=== PATIENT | male | born 1990 | race Caucasian/White ===

== ENCOUNTER 2016-10-26 17:50 | Emergency (ER) | payer MEDICAID ==
[~2016-10-26] VITALS: Ht 175.3 cm; Wt 68.0 kg
[2016-10-26 17:53] VITALS: BP 131/89; PULSE 99; RESP 16; TEMP 98.4; O2SAT 98
[2016-10-26] MEDS ORDERED: SODIUM CHLOR 0.9% 1000 ML INJ 1,000 ML IV SCH (19:36)
[2016-10-26] MEDS ORDERED: SODIUM CHLORIDE 0.9% FLUSH 5 ML FLUSH IVF PRN (19:45)
[2016-10-26] MEDS ORDERED: ONDANSETRON HCL 4 MG/2 ML VIAL IVP ONE (19:45)
[2016-10-26] MEDS ORDERED: MORPHINE SULFATE 4 MG/ML INJ IV PUSH ONE (19:45)
[2016-10-26 19:46] VITALS: BP 138/83; PULSE 81; RESP 16; RESP 18; O2SAT 96
[2016-10-26] MEDS ORDERED: FAMOTIDINE 20 MG/2 ML VIAL IV PUSH ONE (20:15)
[2016-10-26] MEDS ORDERED: HYDROmorphone HCL PF 1 MG/ML VIAL IV PUSH ONE ×2 (20:15→22:30)
[2016-10-26 20:37] LABS: AUTOMATED NEUTROPHIL # 12.3 TH/MM3 (1.8-7.7); BASOPHIL % 0.3 % (0.0-2.0); EOSINOPHIL % 0.1 % (0.0-4.0); HEMATOCRIT 41.4 % (39.0-51.0); HEMO FLAGS DIFF FINAL; LYMPH % 7.6 % (9.0-44.0); MEAN CELL VOLUME 87.6 FL (80.0-100.0); MEAN CORPUSCULAR HEMOGLOBIN 29.6 PG (27.0-34.0); MEAN CORPUSCULAR HGB CONC 33.8 % (32.0-36.0); MONO % 2.5 % (0.0-8.0); NEUT % 89.5 % (16.0-70.0); PLATELET COUNT 229 TH/MM3 (150-450); RED BLOOD COUNT 4.73 MIL/MM3 (4.50-5.90); RED CELL DISTRIBUTION WIDTH 12.9 % (11.6-17.2); WHITE BLOOD COUNT 13.7 TH/MM3 (4.0-11.0)
[2016-10-26 20:50] LABS: BICARBONATE 24.7 MEQ/L (21.0-32.0); POTASSIUM 4.3 MEQ/L (3.5-5.1)
[2016-10-26 20:54] LABS: TOTAL BILIRUBIN ADULT 0.1 MG/DL (0.2-1.0)
[2016-10-26] MEDS ORDERED: GABA100C4 PO (20:58)
[2016-10-26] MEDS ORDERED: AQUACHW PO (20:58)
[2016-10-26] MEDS ORDERED: PANT20 PO (20:58)
[2016-10-26] MEDS ORDERED: CULT10CA4 PO (20:58)
[2016-10-26] MEDS ORDERED: VENTAER INH (20:58)
[2016-10-26] MEDS ORDERED: DIAZ2TAB PO (20:58)
[2016-10-26] MEDS ORDERED: VITA100064 PO (20:58)
[2016-10-26] MEDS ORDERED: ZENP1000 PO (20:58)
[2016-10-26] MEDS ORDERED: DRON2.5 PO (20:58)
[2016-10-26 21:15] VITALS: BP 120/63; PULSE 98; RESP 16; O2SAT 96
[2016-10-26] MEDS ORDERED: ONDANSETRON HCL 4 MG/2 ML VIAL IV PUSH ONE (22:30)
--- NOTE | 2016-10-26 22:46 | PD ---
HPI Chief Complaint: GI Complaint Time Seen by Provider: 19:32 Travel History International Travel<30 days: No Contact w/Intl Traveler<30days: No Traveled to known affect area: No History of Present Illness HPI Patient is a 26 year old male with history of cystic Fibrosis and pancreatitis, who comes in complaining of abdominal pain, nausea or vomiting. He says he has had issues times in the past. He has had a nerve block performed in the past that helped for about 2 months, but then wore off. He says he is supposed to be scheduled for another one. He says that this started this morning. He tried to take ODT Zofran, but says it did not help. He says he was also trying to take Percocet for the pain but says it did not help since he vomited. He denies fever or chills. He says he has some epigastric abdominal pain. He says that this episode is similar to past episodes. He denies chest pain or shortness of breath. PFSH Past Medical History GERD: Yes Respiratory: Yes (cystic fibrosis) Pancreatitis: Yes Tetanus Vaccination: < 5 Years Influenza Vaccination: Yes Past Surgical History Surgical History: No Previous Surgery Social History Alcohol Use: No Tobacco Use: No Substance Use: No Allergies-Medications (Allergen,Severity, Reaction): Coded Allergies: No Known Allergies (Unverified , 10/26/16) Reported Meds & Prescriptions Reported Meds & Active Scripts Active Reported Protonix (Pantoprazole Sodium) 20 Mg Tab 20 Mg PO DAILY Diazepam 2 Mg Tab 2 Mg PO BID PRN Culturelle (Lactobacillus Rhamnosus (GG)) 10 B Cell Cap 1 Cap PO BID Aquadeks (Multiple Vitamins W/ Minerals) 1 Chw Chw 1 Chew PO DIRECTED Gabapentin 100 Mg Cap 100 Mg PO BID Marinol (Dronabinol) 2.5 Mg Cap 2.5 Mg PO DAILY Vitamin D (Cholecalciferol) 1,000 Unit Tab 1,000 Units PO DAILY Ventolin Hfa 18 GM Inh (Albuterol Sulfate) 90 Mcg/Act Aer 1 Puff INH Q4H PRN Zenpep (Pancrelipase) 10,000-34,000-55,000 Units Cap 1 Cap PO TIDPC Review of Systems Except as stated in HPI: all other systems reviewed are Neg General / Constitutional: No: Fever, Chills HENT: No: Headaches, Lightheadedness Cardiovascular: No: Chest Pain or Discomfort Respiratory: No: Shortness of Breath Gastrointestinal: Positive: Nausea, Vomiting, Abdominal Pain Genitourinary: No: Dysuria Musculoskeletal: No: Pain Skin: No Rash, No Change in Pigmentation Neurologic: No: Weakness, Dizziness Physical Exam Narrative GENERAL: Awake and alert, in no acute distress. SKIN: Warm and dry. HEAD: Atraumatic. Normocephalic. EYES: Pupils equal and round. No scleral icterus. ENT: Mucous membranes pink and moist. NECK: Trachea midline. No JVD. CARDIOVASCULAR: Regular rate and rhythm. No murmur appreciated. RESPIRATORY: No accessory muscle use. Clear to auscultation. Breath sounds equal bilaterally. GASTROINTESTINAL: Abdomen soft, nondistended. Mild epigastric tenderness. No rebound or guarding. MUSCULOSKELETAL: No obvious deformities. No clubbing. No cyanosis. No edema. NEUROLOGICAL: Awake and alert. No obvious cranial nerve deficits. Motor grossly within normal limits. Normal speech. PSYCHIATRIC: Appropriate mood and affect; insight and judgment normal. Data Data Last Documented VS Vital Signs Date Time Temp Pulse Resp B/P Pulse Ox O2 Delivery O2 Flow Rate FiO2 10/26/16 21:15 98 16 120/63 96 Room Air 10/26/16 17:53 98.4 Orders Basic Metabolic Panel (Bmp) (10/26/16 19:36) Complete Blood Count With Diff (10/26/16 19:36) Lipase (10/26/16 19:36) Prothrombin Time / Inr (Pt) (10/26/16 19:36) Act Partial Throm Time (Ptt) (10/26/16 19:36) Iv Access Insert/Monitor (10/26/16 19:36) Ecg Monitoring (10/26/16 19:36) Oximetry (10/26/16 19:36) Morphine Inj (Morphine Inj) (10/26/16 19:45) Ondansetron Inj (Zofran Inj) (10/26/16 19:45) Sodium Chlor 0.9% 1000 Ml Inj (Ns 1000 M (10/26/16 19:36) Sodium Chloride 0.9% Flush (Ns Flush) (10/26/16 19:45) Hepatic Functional Panel (10/26/16 19:36) Famotidine Inj (Pepcid Inj) (10/26/16 20:15) Hydromorphone Pf Inj (Dilaudid Pf Inj) (10/26/16 20:15) Ondansetron Inj (Zofran Inj) (10/26/16 22:30) Hydromorphone Pf Inj (Dilaudid Pf Inj) (10/26/16 22:30) Labs Laboratory Tests Test 10/26/16 20:30 White Blood Count 13.7 TH/MM3 Red Blood Count 4.73 MIL/MM3 Hemoglobin 14.0 GM/DL Hematocrit 41.4 % Mean Corpuscular Volume 87.6 FL Mean Corpuscular Hemoglobin 29.6 PG Mean Corpuscular Hemoglobin 33.8 % Concent Red Cell Distribution Width 12.9 % Platelet Count 229 TH/MM3 Mean Platelet Volume 7.7 FL Neutrophils (%) (Auto) 89.5 % Lymphocytes (%) (Auto) 7.6 % Monocytes (%) (Auto) 2.5 % Eosinophils (%) (Auto) 0.1 % Basophils (%) (Auto) 0.3 % Neutrophils # (Auto) 12.3 TH/MM3 Lymphocytes # (Auto) 1.0 TH/MM3 Monocytes # (Auto) 0.3 TH/MM3 Eosinophils # (Auto) 0.0 TH/MM3 Basophils # (Auto) 0.0 TH/MM3 CBC Comment DIFF FINAL Differential Comment Sodium Level 140 MEQ/L Potassium Level 4.3 MEQ/L Chloride Level 105 MEQ/L Carbon Dioxide Level 24.7 MEQ/L Anion Gap 10 MEQ/L Blood Urea Nitrogen 7 MG/DL Creatinine 1.05 MG/DL Estimat Glomerular Filtration 85 ML/MIN Rate Random Glucose 106 MG/DL Calcium Level 8.3 MG/DL Total Bilirubin 0.1 MG/DL Direct Bilirubin 0.1 MG/DL Indirect Bilirubin 0.0 MG/DL Aspartate Amino Transf 13 U/L (AST/SGOT) Alanine Aminotransferase 19 U/L (ALT/SGPT) Alkaline Phosphatase 72 U/L Total Protein 7.5 GM/DL Albumin 4.1 GM/DL Lipase 27 U/L [facility] Medical Decision Making Medical Screen Exam Complete: Yes Emergency Medical Condition: Yes Differential Diagnosis pancreatitis vs gastritis vs gastroenteritis Narrative Course Patient is a 26-year-old male with history of cystic fibrosis who comes in complaining of nausea and vomiting. Exam shows mild epigastric tenderness. IV established, labs sent. Patient given IV fluids, morphine, Zofran. Patient complain that morphine was not helping his pain. He complained of acidic feeling in his stomach. Given a dose of famotidine as well as Dilaudid. Patient reports improvement of symptoms. He is able to drink Gatorade without vomiting. He is requesting additional dose of medication prior to being discharged home. Given second dose of pain medicine as well as Zofran. Patient has ODT Zofran as well as Percocet at home to take. Advised to take the Zofran as needed for nausea. Advised to drink plenty of fluids. Advised follow-up with his doctors. Advised to return to the ED as needed for any worsening symptoms. Diagnosis Primary Impression: Nausea & vomiting Qualified Code: R11.2 - Non-intractable vomiting with nausea, unspecified vomiting type Patient Instructions: Acute Nausea and Vomiting (ED), General Instructions Additional Instructions: Follow up with your doctor. Take Zofran as needed for nausea. Drink plenty of fluids. Return to the ED as needed for any worsening symptoms. Disposition: 01 DISCHARGE HOME Condition: Stable Tala Nascimento MD Oct 26, 2016 22:46
[2016-10-26 23:10] VITALS: BP 120/58
== END 2016-10-26 23:23 | disposition home or self-care (01) ==
LOC: NEPA 17:50
DX: R11.2 Nausea with vomiting, unspecified (principal); E84.9 Cystic fibrosis, unspecified; K86.81 Exocrine pancreatic insufficiency
CPT/HCPCS: 80048; 80076; 83690; 85025; 96361; 96374; 96375; 96376; 99284; J1170; J2270; J2405; J7030; 85610; 85730

== ENCOUNTER 2016-12-27 13:23 | Observation (INO) | payer MEDICAID ==
[~2016-12-27] VITALS: Ht 175.3 cm; Wt 62.9 kg
[~2016-12-27 13:23] MED LIST: AQUACHW PO; CULT10CA4 PO; DIAZ2TAB PO; DRON2.5 PO; GABA100C4 PO; PANT20 PO; VENTAER INH; VITA100064 PO; ZENP1000 PO
[2016-12-27 13:26] VITALS: BP 133/97; PULSE 99; RESP 18; TEMP 98.3; O2SAT 99
--- NOTE | 2016-12-27 13:44 | PD ---
HPI Chief Complaint: GI Complaint Time Seen by Provider: 13:38 Travel History International Travel<30 days: No Contact w/Intl Traveler<30days: No Traveled to known affect area: No History of Present Illness HPI This 26-year-old male is complaining of epigastric pain and vomiting. He has a history of cystic fibrosis and he says that he has not been doing well recently. He has moved from [place] and is planning to see a physician in [place] about 2 weeks. He has a history of pancreatitis related to cystic fibrosis. This morning he was coughing and he is coughing led to vomiting. She started vomiting and unable to stop and is having epigastric pain. He has had episodes like this before. Initially he said his breathing seemed okay but later in the course of his ER stay he said that he felt quite short of breath morning and his sats running in the 80s. He does say he is breathing better now. He is coughing a lot and having some right-sided chest pain. He says that his sputum cultures usually grow staph and pseudomonas. He says he has never been admitted for pneumonia and never been on a ventilator [facility] Past Medical History Cystic Fibrosis: Yes GERD: Yes Respiratory: Yes Pancreatitis: Yes Social History Alcohol Use: No Tobacco Use: No Substance Use: No Allergies-Medications (Allergen,Severity, Reaction): Coded Allergies: No Known Allergies (Unverified , 12/27/16) Reported Meds & Prescriptions Reported Meds & Active Scripts Active Reported Lansoprazole 30 Mg Capdr 30 Mg PO DAILY Ondansetron (Ondansetron HCl) 8 Mg Tab 8 Mg PO TID PRN Metoclopramide (Metoclopramide HCl) 5 Mg Tab 5 Mg PO QID Albuterol Neb (Albuterol Sulfate) 2.5 Mg/0.5 Ml Neb 2.5 Mg NEB Q6HR NEB PRN Note: The Albuterol Sulfate Inhalation Solution is concentrated and must be diluted. Read complete instructions carefully before using. Azithromycin 500 Mg Tab 500 Mg PO DAILY PRN Oxycodone (Oxycodone HCl) 5 Mg Tab 5 Mg PO Q6H PRN Aquadeks (Multiple Vitamins W/ Minerals) 1 Chw Chw Fluticasone Nasal [place] 50 Mcg/Act Naspr 50 Mcg EACH NARE BID 50 mcg/spray Famotidine 20 Mg Tab 20 Mg PO BID Magnesium Oxide 400 Mg Tab 400 Mg PO DAILY Diazepam 2 Mg Tab 2 Mg PO BID PRN Gabapentin 100 Mg Cap 300 Mg PO BID Vitamin D (Cholecalciferol) 1,000 Unit Tab 1,000 Units PO DAILY Ventolin Hfa 18 GM Inh (Albuterol Sulfate) 90 Mcg/Act Aer 1 Puff INH Q4H PRN Zenpep (Pancrelipase) 10,000-34,000-55,000 Units Cap 1 Cap PO TIDPC Review of Systems General / Constitutional: No: Fever, Chills Eyes: No: Diploplia, Blurred Vision HENT: No: Headaches Cardiovascular: No: Chest Pain or Discomfort Respiratory: Positive: Cough, Shortness of Breath Gastrointestinal: Positive: Nausea, Vomiting, Abdominal Pain Genitourinary: No: Urgency, Frequency Musculoskeletal: No: Myalgias, Arthralgias Skin: No Rash Endocrine: No: Heat Intolerance Hematologic/Lymphatic: No: Easy Bruising Physical Exam Narrative GENERAL: Well-developed male SKIN: Focused skin assessment warm/dry. HEAD: Atraumatic. Normocephalic. EYES: Pupils equal and round. No scleral icterus. No injection or drainage. ENT: No nasal bleeding or discharge. Mucous membranes pink and moist. NECK: Trachea midline. No JVD. CARDIOVASCULAR: Regular rate and rhythm. No murmur appreciated. RESPIRATORY: No accessory muscle use. There are coarse rales bilaterally. There is some right-sided chest wall tenderness GASTROINTESTINAL: Abdomen soft, there is some epigastric tenderness, nondistended. Hepatic and splenic margins not palpable. MUSCULOSKELETAL: No obvious deformities. No clubbing. No cyanosis. No edema. NEUROLOGICAL: Awake and alert. No obvious cranial nerve deficits. Motor grossly within normal limits. Normal speech. PSYCHIATRIC: Appropriate mood and affect; insight and judgment normal. Data Data Last Documented VS Vital Signs Date Time Temp Pulse Resp B/P Pulse Ox O2 Delivery O2 Flow Rate FiO2 12/27/16 15:14 90 18 127/81 99 Room Air 12/27/16 13:26 98.3 Orders Sodium Chlor 0.9% 1000 Ml Inj (Ns 1000 M (12/27/16 13:45) Ondansetron Inj (Zofran Inj) (12/27/16 13:45) Hydromorphone Pf Inj (Dilaudid Pf Inj) (12/27/16 13:45) Pantoprazole Inj (Protonix Inj) (12/27/16 13:45) Complete Blood Count With Diff (12/27/16 13:53) Comprehensive Metabolic Panel (12/27/16 13:53) Lipase (12/27/16 13:53) Chest, Single Ap (12/27/16 15:16) Ondansetron Inj (Zofran Inj) (12/27/16 15:30) Prochlorperazine Inj (Compazine Inj) (12/27/16 15:30) Diphenhydramine Inj (Benadryl Inj) (12/27/16 15:30) Sodium Chlor 0.9% 1000 Ml Inj (Ns 1000 M (12/27/16 15:30) Blood Culture (12/27/16 15:21) Lactic Acid Sepsis Protocol (12/27/16 15:21) Piperacil-Tazo 4.5 Gm Premix (Zosyn 4.5 (12/27/16 15:45) Labs Laboratory Tests Test 12/27/16 13:50 White Blood Count 20.6 TH/MM3 Red Blood Count 5.29 MIL/MM3 Hemoglobin 15.6 GM/DL Hematocrit 44.9 % Mean Corpuscular Volume 84.9 FL Mean Corpuscular Hemoglobin 29.5 PG Mean Corpuscular Hemoglobin 34.7 % Concent Red Cell Distribution Width 12.0 % Platelet Count 356 TH/MM3 Mean Platelet Volume 8.3 FL Neutrophils (%) (Auto) % Lymphocytes (%) (Auto) % Monocytes (%) (Auto) % Eosinophils (%) (Auto) % Basophils (%) (Auto) % Neutrophils # (Auto) TH/MM3 Lymphocytes # (Auto) TH/MM3 Monocytes # (Auto) TH/MM3 Eosinophils # (Auto) TH/MM3 Basophils # (Auto) TH/MM3 CBC Comment AUTO DIFF Differential Total Cells 100 Counted Neutrophils % (Manual) 91 % Lymphocytes % 6 % Monocytes % 3 % Neutrophils # (Manual) 18.7 TH/MM3 Differential Comment FINAL DIFF MANUAL Platelet Estimate NORMAL Platelet Morphology Comment NORMAL Red Cell Morphology Comment NORMAL Sodium Level 137 MEQ/L Potassium Level 4.8 MEQ/L Chloride Level 103 MEQ/L Carbon Dioxide Level 21.9 MEQ/L Anion Gap 12 MEQ/L Blood Urea Nitrogen 17 MG/DL Creatinine 0.97 MG/DL Estimat Glomerular Filtration 94 ML/MIN Rate Random Glucose 149 MG/DL Calcium Level 9.7 MG/DL Total Bilirubin 0.3 MG/DL Aspartate Amino Transf 28 U/L (AST/SGOT) Alanine Aminotransferase 23 U/L (ALT/SGPT) Alkaline Phosphatase 84 U/L Total Protein 9.4 GM/DL Albumin 4.9 GM/DL Lipase 33 U/L MDM Medical Decision Making Medical Screen Exam Complete: Yes Emergency Medical Condition: Yes Medical Record Reviewed: Yes Differential Diagnosis Differential includes acute gastritis, pancreatitis, Narrative Course IV fluids and pain meds have been given. Patient reports that his breathing is at baseline at this time. His nausea and vomiting was initially controlled but then he had a recurrence. He also was complaining of some right-sided chest pain. Repeat exam does not show any focal swelling or tenderness of the chest. Patient's white count is 20,000. His lipase is normal. Repeat examination the abdomen shows it to be soft nontender. Chest x-ray shows left lower lobe when he is consistent with history of cystic fibrosis. No acute infiltrate is seen. Patient is having sporadic nausea and vomiting with leukocytosis. Diagnosis Primary Impression: Nausea & vomiting Qualified Code: R11.2 - Non-intractable vomiting with nausea, unspecified vomiting type Additional Impressions: Cystic fibrosis Leukocytosis Qualified Code: D72.829 - Leukocytosis, unspecified type Admitting Information Admitting Physician Requests: Rishabh Ram MD Dec 27, 2016 13:44
[2016-12-27] MEDS ORDERED: HYDROmorphone HCL PF 1 MG/ML VIAL IV PUSH ONE (13:45)
[2016-12-27] MEDS ORDERED: SODIUM CHLOR 0.9% 1000 ML INJ 1,000 ML IV ONE ×2 (13:45→15:30)
[2016-12-27] MEDS ORDERED: PANTOPRAZOLE SODIUM 40 MG VIAL IV PUSH ONE (13:45)
[2016-12-27] MEDS ORDERED: ONDANSETRON HCL 4 MG/2 ML VIAL IV PUSH ONE ×2 (13:45→15:30)
[2016-12-27 14:08] LABS: HEMATOCRIT 44.9 % (39.0-51.0); MEAN CELL VOLUME 84.9 FL (80.0-100.0); MEAN CORPUSCULAR HEMOGLOBIN 29.5 PG (27.0-34.0); MEAN CORPUSCULAR HGB CONC 34.7 % (32.0-36.0); PLATELET COUNT 356 TH/MM3 (150-450); RED BLOOD COUNT 5.29 MIL/MM3 (4.50-5.90); WHITE BLOOD COUNT 20.6 TH/MM3 (4.0-11.0)
[2016-12-27 14:16] LABS: HEMO FLAGS AUTO DIFF
[2016-12-27 14:28] LABS: CHLORIDE 103 MEQ/L (98-107); SODIUM (NA) 137 MEQ/L (136-145)
[2016-12-27] MEDS ORDERED: AZIT500T2 PO (14:30)
[2016-12-27] MEDS ORDERED: ONDA1TAB17 PO (14:30)
[2016-12-27] MEDS ORDERED: ALBU.5I NEB (14:30)
[2016-12-27] MEDS ORDERED: MAGN400T2 PO (14:30)
[2016-12-27] MEDS ORDERED: METO5TAB PO (14:30)
[2016-12-27] MEDS ORDERED: FAMO20TA2 PO (14:30)
[2016-12-27] MEDS ORDERED: OXYC-392 PO (14:30)
[2016-12-27] MEDS ORDERED: AQUACHW (14:30)
[2016-12-27] MEDS ORDERED: LANS30CA PO (14:30)
[2016-12-27] MEDS ORDERED: FLUT50SP EACH NARE (14:30)
[2016-12-27 14:32] LABS: ANION GAP 12 MEQ/L (5-15); BICARBONATE 21.9 MEQ/L (21.0-32.0); BLOOD UREA NITROGEN 17 MG/DL (7-18)
[2016-12-27 14:35] LABS: ALT (GPT) 23 U/L (12-78); AST (GOT) 28 U/L (15-37); GLOMERULAR FILTRATION RATE 94 ML/MIN (>89); POTASSIUM 4.8 MEQ/L (3.5-5.1)
[2016-12-27 14:36] LABS: TOTAL BILIRUBIN ADULT 0.3 MG/DL (0.2-1.0)
[2016-12-27 14:38] LABS: ALKALINE PHOSPHATASE 84 U/L (45-117)
[2016-12-27 14:55] LABS: NEUTROPHIL # MANUAL DIFF 18.7 TH/MM3 (1.8-7.7); POLYS (SEG NEUTROPHILS) 91 % (16-70); WBC DIFF SAMPLE 100
[2016-12-27 14:56] LABS: PLATELET ESTIMATE SMEAR NORMAL (NORMAL); PLATELET MORPHOLOGY NORMAL (NORMAL); SCAN/DIFF FINAL DIFF MANUAL
[2016-12-27 15:14] VITALS: BP 127/81; PULSE 90; RESP 18; O2SAT 99
[2016-12-27] MEDS ORDERED: PROCHLORPERAZINE INJ 10 MG/2 ML VIAL IV PUSH ONE (15:30)
[2016-12-27] MEDS ORDERED: diphenhydrAMINE HCL 50 MG/ML VIAL IV PUSH ONE (15:30)
[2016-12-27] MEDS ORDERED: PIPERACIL-TAZO 4.5 GM PREMIX 100 ML IV ONE (15:45)
--- NOTE | 2016-12-27 15:59 | RADHPO ---
EXAM DATE/TIME: 12/27/2016 15:48 [facility] COMPARISON: No previous studies available for comparison. INDICATIONS : Cough today. MEDICAL HISTORY : Cystic fibrosis. SURGICAL HISTORY : None. ENCOUNTER: Initial ACUITY: 1 day PAIN SCORE: 0/10 LOCATION: Bilateral cranial FINDINGS: A single view of the chest demonstrates persistent linear densities right greater left consistent wit h given history of cystic fibrosis. The cardiomediastinal contours are unremarkable. Osseous struct ures are intact. CONCLUSION: Upper lobe linear densities consistent with given history of cystic fibrosis. No acute infiltrate se en. Beto Purdy MD on December 27, 2016 at 15:55 Board Certified Radiologist. This report was verified electronically.
[2016-12-27] MEDS ORDERED: guaiFENesin/CODEINE SYRUP 200 MG/20 MG/10 ML CUP PO PRN (16:30)
[2016-12-27] MEDS ORDERED: SODIUM CHLOR 0.9% 1000 ML INJ 1,000 ML IV SCH (16:30)
[2016-12-27] MEDS ORDERED: CALCIUM CARBONATE 500 MG CHEWABLE TAB CHEW PRN (16:30)
[2016-12-27] MEDS ORDERED: ACETAMINOPHEN 325 MG TAB PO PRN (16:30)
[2016-12-27] MEDS ORDERED: RESP: ALBUTEROL 2.5 MG/3 ML NEB (PRN) INH (16:30)
[2016-12-27] MEDS ORDERED: AZITHROMYCIN 250 MG TAB PO PRN (16:30)
[2016-12-27] MEDS ORDERED: ALUMINUM/MAGNESIUM/SIMETH 30 ML CUP PO PRN (16:30)
[2016-12-27] MEDS ORDERED: DIAZEPAM 2 MG TAB PO PRN (16:30)
[2016-12-27] MEDS ORDERED: DOCUSATE SODIUM 100 MG CAP PO PRN (16:30)
[2016-12-27] MEDS ORDERED: MAGNESIUM HYDROXIDE SUSP 30 ML CUP PO PRN (16:30)
[2016-12-27] MEDS ORDERED: SODIUM CHLORIDE 0.9% FLUSH 10 ML FLUSH IV FLUSH PRN (16:30)
[2016-12-27 16:55] LABS: MAGNESIUM 2.3 MG/DL (1.5-2.5)
[2016-12-27 17:20] VITALS: BP 117/62; PULSE 72; RESP 16; O2SAT 97
[2016-12-27 17:45] VITALS: O2SAT 99
[2016-12-27] MEDS: METOCLOPRAMIDE HCL 10 MG TAB PO SCH ×2 (18:13→22:08)
[2016-12-27] MEDS: LIPASE/PROTEASE/AMYLASE (12,000/38,000/60,000) CAP PO SCH (18:15)
--- NOTE | 2016-12-27 18:16 | HHI.HP ---
[facility] [place] No Primary Care Physician Admission Diagnosis CYSTIC FIBROSIS EXACERBATION, VOMITING, LEUKOCYTOSIS Diagnoses: Chief Complaint: Vomiting Travel History International Travel<30 Days: No Contact w/Intl Traveler <30 Da: No Traveled to Known Affected Are: No History of Present Illness This is a 26-year-old male with a history of cystic fibrosis, GERD and pancreatitis. He presents to the emergency department because of vomiting. States he was given ciprofloxacin about 2 weeks ago because of cystic fibrosis exacerbation. He has been having productive cough with whitish phlegm and states it is not any better causing him to vomit. He also has shortness of breath and right sided pleuritic chest pain because of the coughing. He also has burning epigastric pain from vomiting. He also has nausea but no fever, chills, UTI symptoms, diarrhea and constipation. In the emergency department, he received Zofran, Compazine, Protonix, IV Dilaudid and Zosyn as well as IV fluid and continued to be symptomatic and was then recommended hospitalization. He also has leukocytosis. Patient states his previous sputum cultures grew Staphylococcus and Pseudomonas. Review of Systems Constitutional: COMPLAINS OF: Fatigue, DENIES: Diaphoretic episodes, Fever, Weight gain, Weight loss, Chills, Dizziness, Change in appetite, Night Sweats Endocrine: DENIES: Heat/cold intolerance, Polydipsia, Polyuria, Polyphagia Eyes: DENIES: Blurred vision, Diplopia, Vision loss, Photosensitivity Ears, nose, mouth, throat: DENIES: Tinnitus, Vertigo, Throat pain, Hoarseness, Epistaxis, Odynophagia Respiratory: COMPLAINS OF: Sputum production, Shortness of breath, DENIES: Cough, Wheezing, Hemoptysis Cardiovascular: COMPLAINS OF: Chest pain, DENIES: Palpitations, Syncope, Dyspnea on Exertion, PND, Lower Extremity Edema, Orthopnea, Claudication Gastrointestinal: COMPLAINS OF: Nausea, Vomiting, DENIES: Abdominal pain, Black stools, Bloody stools, Constipation, Diarrhea, Difficulty Swallowing, Anorexia Genitourinary: DENIES: Urinary frequency, Urinary incontinence, Urgency, Hematuria, Dysuria, Nocturia, Penile Discharge Integumentary: DENIES: Rash Neurologic: DENIES: Headache, Localized weakness, Seizures, Tremor, Poor Balance Psychiatric: DENIES: Anxiety, Confusion, Depression, Hallucinations, Agitation , Suicidal Ideation, Homicidal Ideation, Delusions Past Family Social History Past Medical History As previously mentioned Past Surgical History Denies Reported Medications Lansoprazole 30 Mg Capdr 30 Mg PO DAILY Ondansetron (Ondansetron HCl) 8 Mg Tab 8 Mg PO TID PRN Metoclopramide (Metoclopramide HCl) 5 Mg Tab 5 Mg PO QID Albuterol Neb (Albuterol Sulfate) 2.5 Mg/0.5 Ml Neb 2.5 Mg NEB Q6HR NEB PRN Note: The Albuterol Sulfate Inhalation Solution is concentrated and must be diluted. Read complete instructions carefully before using. Azithromycin 500 Mg Tab 500 Mg PO DAILY PRN Oxycodone (Oxycodone HCl) 5 Mg Tab 5 Mg PO Q6H PRN Aquadeks (Multiple Vitamins W/ Minerals) 1 Chw Chw Fluticasone Nasal [place] 50 Mcg/Act Naspr 50 Mcg EACH NARE BID 50 mcg/spray Famotidine 20 Mg Tab 20 Mg PO BID Magnesium Oxide 400 Mg Tab 400 Mg PO DAILY Diazepam 2 Mg Tab 2 Mg PO BID PRN Gabapentin 100 Mg Cap 300 Mg PO BID Vitamin D (Cholecalciferol) 1,000 Unit Tab 1,000 Units PO DAILY Ventolin Hfa 18 GM Inh (Albuterol Sulfate) 90 Mcg/Act Aer 1 Puff INH Q4H PRN Zenpep (Pancrelipase) 10,000-34,000-55,000 Units Cap 1 Cap PO TIDPC Allergies: Coded Allergies: No Known Allergies (Unverified , 12/27/16) Family History No history of cystic fibrosis Physical Exam Vital Signs Vital Signs Date Time Temp Pulse Resp B/P Pulse Ox O2 Delivery O2 Flow Rate FiO2 12/27/16 17:45 99 21 12/27/16 17:20 72 16 117/62 97 Room Air 12/27/16 15:14 90 18 127/81 99 Room Air 12/27/16 14:30 18 12/27/16 13:26 98.3 99 18 133/97 99 Physical Exam GENERAL: This is a well-nourished, well-developed patient, in no apparent distress. Appears weak SKIN: No rashes, ecchymoses or lesions. Cool and dry. HEAD: Atraumatic. Normocephalic. No temporal or scalp tenderness. EYES: Pupils equal round and reactive. Extraocular motions intact. No scleral icterus. No injection or drainage. ENT: Nose without bleeding, purulent drainage or septal hematoma. Throat without erythema, tonsillar hypertrophy or exudate. Uvula midline. Airway patent. NECK: Trachea midline. No JVD or lymphadenopathy. Supple, nontender, no meningeal signs. CARDIOVASCULAR: Regular rate and rhythm without murmurs, gallops, or rubs. RESPIRATORY: Coarse breath sounds equal bilaterally. No wheezes, rales, or rhonchi. GASTROINTESTINAL: Abdomen soft, slight epigastric tenderness, nondistended. No guarding. MUSCULOSKELETAL: Extremities without clubbing, cyanosis, or edema. No joint tenderness, effusion, or edema noted. No calf tenderness. Negative Homans sign bilaterally. NEUROLOGICAL: Awake and alert. Cranial nerves II through XII intact. Motor and sensory grossly within normal limits. Five out of 5 muscle strength in all muscle groups. Normal speech. Laboratory Laboratory Tests Test 12/27/16 12/27/16 13:50 16:20 White Blood Count 20.6 Red Blood Count 5.29 Hemoglobin 15.6 Hematocrit 44.9 Mean Corpuscular Volume 84.9 Mean Corpuscular Hemoglobin 29.5 Mean Corpuscular Hemoglobin 34.7 Concent Red Cell Distribution Width 12.0 Platelet Count 356 Mean Platelet Volume 8.3 Neutrophils (%) (Auto) Lymphocytes (%) (Auto) Monocytes (%) (Auto) Eosinophils (%) (Auto) Basophils (%) (Auto) Neutrophils # (Auto) Lymphocytes # (Auto) Monocytes # (Auto) Eosinophils # (Auto) Basophils # (Auto) CBC Comment AUTO DIFF Differential Total Cells 100 Counted Neutrophils % (Manual) 91 Lymphocytes % 6 Monocytes % 3 Neutrophils # (Manual) 18.7 Differential Comment FINAL DIFF MANUAL Platelet Estimate NORMAL Platelet Morphology Comment NORMAL Red Cell Morphology Comment NORMAL Sodium Level 137 Potassium Level 4.8 Chloride Level 103 Carbon Dioxide Level 21.9 Anion Gap 12 Blood Urea Nitrogen 17 Creatinine 0.97 Estimat Glomerular Filtration 94 Rate Random Glucose 149 Calcium Level 9.7 Magnesium Level 2.3 Total Bilirubin 0.3 Aspartate Amino Transf 28 (AST/SGOT) Alanine Aminotransferase 23 (ALT/SGPT) Alkaline Phosphatase 84 Total Protein 9.4 Albumin 4.9 Lipase 33 Lactic Acid Level 1.6 Date/Time Procedure Status Source Growth 12/27/16 16:10 Aerobic Blood Culture Received Blood Peripheral Pending 12/27/16 16:10 Anaerobic Blood Culture Received Blood Peripheral Pending Result Diagram: 12/27/16 1350 12/27/16 1350 Imaging Last Impressions Chest X-Ray 12/27/16 1516 Signed Impressions: Service Date/Time: December 15:48 - CONCLUSION: Upper lobe linear densities consistent with given history of cystic fibrosis. No acute infiltrate seen. Beto Purdy MD Assessment and Plan Problem List: (1) Cystic fibrosis ICD Code: E84.9 Status: Acute (2) Nausea & vomiting ICD Code: R11.2 Status: Acute (3) Leukocytosis ICD Code: D72.829 Status: Acute Assessment and Plan This is a 26-year-old male with a history of cystic fibrosis, GERD and pancreatitis. He presents to the emergency department because of cough, shortness of breath, right sided chest pain, vomiting and epigastric pain. Cystic fibrosis exacerbation. We'll continue IV Zosyn and start nebulization, IV steroids, oxygen as needed and consult pulmonary. Vomiting secondary to above. Patient has history of GERD and pancreatitis. Lipase within normal limits. Start IV hydration, antiemetics and IV Protonix Leukocytosis secondary to above. Continue IV Zosyn and follow-up blood cultures. Previous sputum culture grew Staphylococcus and Pseudomonas. Low risk for DVT Discussed Condition With Patient Problem Qualifiers (1) Nausea & vomiting: Qualified Code: R11.2 - Non-intractable vomiting with nausea, unspecified vomiting type (2) Leukocytosis: Qualified Code: D72.829 - Leukocytosis, unspecified type Danny Adame MD Dec 27, 2016 18:16
[2016-12-27] MEDS: methylPREDNISolone SOD SUCC 40 MG/1 ML VIAL IV PUSH SCH (18:19)
[2016-12-27] MEDS: ONDANSETRON HCL 4 MG/2 ML VIAL IV PRN (18:31)
[2016-12-27 18:32] VITALS: BP 144/79; PULSE 76; RESP 18; TEMP 97.9; O2SAT 97
[2016-12-27] MEDS ORDERED: KETOROLAC TROMETHAMINE 30 MG/ML (IVP) VIAL IVP PRN (19:00)
[2016-12-27] MEDS: PANTOPRAZOLE SODIUM 40 MG VIAL IV PUSH SCH (19:51)
[2016-12-27] MEDS ORDERED: RESP: ALBUTEROL 2.5 MG/IPRATROPIUM 0.5 MG NEB (SCH) INH (20:00)
[2016-12-27 20:24] VITALS: O2SAT 97
[2016-12-27] MEDS: RESP: ALBUTEROL 0.63 MG/3 ML NEB (SCH) NEB (20:24)
[2016-12-27] MEDS: FLUTICASONE PROPIONATE 50 MCG/ACT 16 GM NASAL SPRAY EACH NARE SCH (20:51)
[2016-12-27] MEDS: HYDROmorphone HCL PF 1 MG/ML VIAL IV PRN (20:51)
[2016-12-27] MEDS: SODIUM CHLORIDE 0.9% FLUSH 10 ML FLUSH IV FLUSH SCH (20:55)
[2016-12-27] MEDS ORDERED: FAMOTIDINE 20 MG TAB PO SCH (21:00)
[2016-12-27] MEDS: guaiFENesin E.R. 600 MG TAB PO SCH (22:08)
[2016-12-27] MEDS: GABAPENTIN 300 MG CAP PO SCH (22:08)
[2016-12-27] MEDS: PIPERACIL-TAZO 4.5 GM PREMIX 100 ML IV SCH (22:43)
[2016-12-28] VITALS: BP 140/90; PULSE 100; RESP 20; TEMP 99.3; O2SAT 98
[2016-12-28] MEDS: methylPREDNISolone SOD SUCC 40 MG/1 ML VIAL IV PUSH SCH ×2 (00:12→06:12)
[2016-12-28] MEDS: HYDROmorphone HCL PF 1 MG/ML VIAL IV PRN ×4 (00:12→08:54)
[2016-12-28] MEDS: PIPERACIL-TAZO 4.5 GM PREMIX 100 ML IV SCH (04:54)
[2016-12-28 06:51] LABS: AUTOMATED NEUTROPHIL # 11.9 TH/MM3 (1.8-7.7); BASOPHIL # 0.1 TH/MM3 (0-0.2); BASOPHIL % 0.4 % (0.0-2.0); EOSINOPHIL % 0.1 % (0.0-4.0); HEMATOCRIT 37.7 % (39.0-51.0); HEMO FLAGS DIFF FINAL; LYMPHOCYTE # 1.7 TH/MM3 (1.0-4.8); MEAN CELL VOLUME 86.2 FL (80.0-100.0); MEAN CORPUSCULAR HEMOGLOBIN 30.2 PG (27.0-34.0); MEAN CORPUSCULAR HGB CONC 35.1 % (32.0-36.0); MONO % 3.2 % (0.0-8.0); NEUT % 84.3 % (16.0-70.0); PLATELET COUNT 295 TH/MM3 (150-450); RED BLOOD COUNT 4.37 MIL/MM3 (4.50-5.90); RED CELL DISTRIBUTION WIDTH 11.7 % (11.6-17.2); WHITE BLOOD COUNT 14.2 TH/MM3 (4.0-11.0)
[2016-12-28 06:59] LABS: POTASSIUM 4.2 MEQ/L (3.5-5.1)
[2016-12-28] MEDS: RESP: ALBUTEROL 0.63 MG/3 ML NEB (SCH) NEB ×2 (07:38→11:20)
[2016-12-28 07:39] VITALS: O2SAT 96
[2016-12-28 07:40] LABS: BICARBONATE 25.4 MEQ/L (21.0-32.0)
[2016-12-28 08:00] VITALS: BP 109/69; PULSE 82; RESP 16; TEMP 97.3; O2SAT 96
[2016-12-28] MEDS: PANTOPRAZOLE SODIUM 40 MG VIAL IV PUSH SCH (08:00)
[2016-12-28] MEDS: FLUTICASONE PROPIONATE 50 MCG/ACT 16 GM NASAL SPRAY EACH NARE SCH (08:57)
[2016-12-28] MEDS: GABAPENTIN 300 MG CAP PO SCH (08:59)
[2016-12-28] MEDS: guaiFENesin E.R. 600 MG TAB PO SCH (08:59)
[2016-12-28] MEDS: SODIUM CHLORIDE 0.9% FLUSH 10 ML FLUSH IV FLUSH SCH (08:59)
[2016-12-28] MEDS: METOCLOPRAMIDE HCL 10 MG TAB PO SCH (09:00)
[2016-12-28] MEDS: LIPASE/PROTEASE/AMYLASE (12,000/38,000/60,000) CAP PO SCH (09:00)
[2016-12-28] MEDS ORDERED: CHOLECALCIFEROL (VIT D3) 1000 UNIT TAB PO SCH (09:00)
[2016-12-28] MEDS ORDERED: LEVO750T33 PO (09:39)
--- NOTE | 2016-12-28 09:39 | HHI.DCPOC ---
Discharge Care Plan Diagnosis: (1) Cystic fibrosis (2) Nausea & vomiting (3) Leukocytosis Your Health Problems Are: Difficulty with ADL Exercise Tolerance Goals to Promote Your Health * To prevent worsening of your condition and complications * To maintain your health at the optimal level Directions to Meet Your Goals Take your medications as prescribed Follow your dietary instruction Follow activity as directed Keep your appointments as scheduled Take your immunizations and boosters as scheduled If your symptoms worsen call your PCP, if no PCP go to Urgent Care Center or Emergency Room Smoking is Dangerous to Your Health. Avoid second hand smoke Call the 24-hour hour crisis hotline for domestic abuse at Danny Adame MD Dec 28, 2016 09:39
--- NOTE | 2016-12-28 09:47 | HHI.PR ---
Subjective Remarks Follow-up cystic fibrosis. He is feeling much better and wants to be discharged since he has been contacted by his piano player in [place] that he will start IV infusion later today for 2 weeks. He has been tolerating food. Improved coughing. Discussed with RN Objective Vitals Vital Signs Date Time Temp Pulse Resp B/P Pulse Ox O2 Delivery O2 Flow Rate FiO2 12/28/16 08:00 97.3 82 16 109/69 96 12/28/16 07:39 96 21 12/28/16 06:42 18 12/28/16 00:00 99.3 100 20 140/90 98 12/27/16 20:51 18 12/27/16 20:24 97 21 12/27/16 18:32 97.9 76 18 144/79 97 12/27/16 17:45 99 21 12/27/16 17:20 72 16 117/62 97 Room Air 12/27/16 15:14 90 18 127/81 99 Room Air 12/27/16 14:30 18 12/27/16 13:26 98.3 99 18 133/97 99 I/O 12/27/16 12/27/16 12/27/16 12/28/16 12/28/16 12/28/16 07:00 15:00 23:00 07:00 15:00 23:00 Intake Total 2204 ml 901 ml Balance 2204 ml 901 ml Intake Oral 204 ml 240 ml IV Total 2000 ml 661 ml # Voids 4 1 # Bowel Movements 1 Result Diagram: 12/28/16 0600 12/28/16 0600 Imaging Last Impressions Chest X-Ray 12/27/16 1516 Signed Impressions: Service Date/Time: December 15:48 - CONCLUSION: Upper lobe linear densities consistent with given history of cystic fibrosis. No acute infiltrate seen. Beto Purdy MD Objective Remarks GENERAL: This is a well-nourished, well-developed patient, in no apparent distress. SKIN: No rashes, ecchymoses or lesions. Cool and dry. HEAD: Atraumatic. Normocephalic. No temporal or scalp tenderness. EYES: Pupils equal round and reactive. Extraocular motions intact. No scleral icterus. No injection or drainage. ENT: Nose without bleeding, purulent drainage or septal hematoma. Throat without erythema, tonsillar hypertrophy or exudate. Uvula midline. Airway patent. NECK: Trachea midline. No JVD or lymphadenopathy. Supple, nontender, no meningeal signs. CARDIOVASCULAR: Regular rate and rhythm without murmurs, gallops, or rubs. RESPIRATORY: Clear breath sounds equal bilaterally. No wheezes, rales, or rhonchi. GASTROINTESTINAL: Abdomen soft, slight epigastric tenderness, nondistended. No guarding. MUSCULOSKELETAL: Extremities without clubbing, cyanosis, or edema. No joint tenderness, effusion, or edema noted. No calf tenderness. Negative Homans sign bilaterally. NEUROLOGICAL: Awake and alert. Cranial nerves II through XII intact. Motor and sensory grossly within normal limits. Five out of 5 muscle strength in all muscle groups. Normal speech. Procedures None A/P Problem List: (1) Cystic fibrosis ICD Code: E84.9 Status: Chronic (2) Nausea & vomiting ICD Code: R11.2 Status: Acute (3) Leukocytosis ICD Code: D72.829 Status: Acute Assessment and Plan This is a 26-year-old male with a history of cystic fibrosis, GERD and pancreatitis. He presents to the emergency department because of cough, shortness of breath, right sided chest pain, vomiting and epigastric pain. Cystic fibrosis exacerbation. Improved cleared for discharge by pulmonary. Switch to by mouth Levaquin discontinue IV Zosyn. Continue nebulization, steroids and oxygen as needed Vomiting secondary to above. Patient has history of GERD and pancreatitis. Lipase within normal limits. Improving discontinue IV hydration. Continue antiemetics and Protonix Leukocytosis secondary to above. Improving continue antibiotics and follow-up blood cultures negative to date. Previous sputum culture grew Staphylococcus and Pseudomonas. Low risk for DVT Discharge Planning Discharge patient to home Condition on discharge: Improved Regular Diet as tolerated Ad Yolanda activity no driving Rx written: Levaquin Follow-up with primary care physician in one week. Patient will follow up with his flare man today to receive IV infusion Problem Qualifiers (1) Nausea & vomiting: Qualified Code: R11.2 - Non-intractable vomiting with nausea, unspecified vomiting type (2) Leukocytosis: Qualified Code: D72.829 - Leukocytosis, unspecified type Danny Adame MD Dec 28, 2016 09:47
[2016-12-28] MEDS ORDERED: MAGNESIUM OXIDE 400 MG TAB PO SCH (11:00)
[2016-12-28 11:21] VITALS: O2SAT 96
--- NOTE | 2016-12-28 12:14 | MB ---
cc: AIDEE HOSKINS M.D. DATE OF CONSULTATION: 12/28/2016 REASON FOR CONSULTATION: Cystic fibrosis exacerbation. HISTORY OF PRESENT ILLNESS Mr. Owen is a 26-year-old male with diagnosis of cystic fibrosis since she was age [age]. The patient was admitted with a chief complaint of cough, expectoration of whitish yellowish mucoid sputum. He as well at epigastric discomfort which has since improved, and as well as vomiting. The patient had a White count elevation to 20,000. He did have increasing shortness of breath while in the emergency room which has gradually improved. At this time he denies any shortness of breath or chest discomfort. He does take Pulmozyme at home as well as nebulized tobramycin together with the nebulized albuterol and need for Nebulizer albuterol as well as saline and he is following up his care with pulmonology in [place]. PAST MEDICAL HISTORY: Cystic fibrosis. Acid reflux History of pancreatitis related to cystic fibrosis. SOCIAL HISTORY Does not smoke, does not use drink, does not use drugs. MEDICATIONS AT HOME Essentially as outlined above. ALLERGIES None known to medication. FAMILY HISTORY None for cystic fibrosis. REVIEW OF SYSTEMS 12-point review of systems as per HPI, past medical history otherwise negative on exam. PHYSICAL EXAMINATION: VITAL SIGNS: Temperature 97.3 degrees Fahrenheit, pulse 80, respirations 16, blood pressure 110/70, ox saturation 96% room air. HEAD, EYES, EARS, NOSE, AND THROAT: Exam unremarkable. Eyes without icterus. NECK: Without adenopathy. Thyroid enlargement. Trachea central. CHEST: Chest is without dullness to percussion and is clear to auscultation. CARDIOVASCULAR SYSTEM: His cardiac exam PMI fifth left space midclavicular line. S1-S2 audible. No murmur or rub. ABDOMEN: Lax bowel sounds audible. EXTREMITIES: No clubbing, cyanosis or edema. LABORATORY DATA Chest x-ray without acute infiltrate. Some linear densities in the upper lobes and noted. White count upon presentation 20,000 this a.m. was at 14, hemoglobin at presentation 15,000, now at 13, platelet count is normal at 295,000, sodium 139, potassium 4.2, BUN 11, creatinine 0.8. IMPRESSION: Cystic fibrosis, exacerbation of epigastric discomfort and vomiting improving. PLAN The patient is doing well on his current regimen. His white count significantly elevated above presentation is now on or the patient is feeling better. He is afebrile. His chest x-ray is without acute infiltrate. He may be discharged to be followed as an outpatient by his field merchandiser in [place], He has his Albuterol nebulization treatments at home as well as a Pneumo vest which he obviously should continue. Oxygenation on room air is adequate, does not require supplemental oxygen therapy. He may be sent home on oral antibiotic therapy like Levaquin for a week or so. Until he sees his own field merchandiser. I do thank you for asking to partake in Mr. Lopez's care. Aidee Hoskins MD WWW/ /9:17 AM /10:24 AM
[2016-12-28 12:17] VITALS: BP 110/72; PULSE 80; RESP 16; TEMP 98; O2SAT 97
[2016-12-28] MEDS: ONDANSETRON HCL 4 MG/2 ML VIAL IV PRN (13:17)
[2016-12-28] MEDS ORDERED: AZITHROMYCIN 250 MG TAB PO SCH (16:30)
== END 2016-12-28 13:19 | disposition home or self-care (01) ==
LOC: PHED 13:23 → PHEDA 16:15 → PH3A 17:45
PROVIDERS: ADMIT Internal Medicine; ATTEND Internal Medicine
DX: E84.9 Cystic fibrosis, unspecified (principal); D72.829 Elevated white blood cell count, unspecified; K21.9 Gastro-esophageal reflux disease without esophagitis
CPT/HCPCS: 71010; 80048; 80053; 83605; 83690; 83735; 85007; 85025; 85027; 87040; 94150; 94640; 94664; 96361; 96365; 96375; 96376; 99285; C9113; G0378; J0780; J1170; J1200; J1885; J2405; J2543; J2920; J7030; J7613

== ENCOUNTER 2017-02-18 08:31 | Observation (INO) | payer MEDICAID ==
[2017-02-18] VITALS (7 sets, daily range): BP systolic 103–139; BP diastolic 47–93; PULSE 61–97; RESP 15–18; TEMP 98–99.4; O2SAT 96–99
[~2017-02-18] VITALS: Ht 175.3 cm; Wt 66.4 kg
[~2017-02-18 08:31] MED LIST changes: +ALBU.5I NEB; +AQUACHW; -AQUACHW PO; +AZIT500T2 PO; -CULT10CA4 PO; -DRON2.5 PO; +FAMO20TA2 PO; +FLUT50SP EACH NARE; +LANS30CA PO; +LEVO750T33 PO; +MAGN400T2 PO; +METO5TAB PO; +ONDA1TAB17 PO; +OXYC-392 PO; -PANT20 PO
[2017-02-18] MEDS ORDERED: SODIUM CHLOR 0.9% 1000 ML INJ 1,000 ML IV SCH (08:50)
--- NOTE | 2017-02-18 08:53 | PD ---
HPI Chief Complaint: Abdominal Pain Time Seen by Provider: 08:50 Travel History International Travel<30 days: No Contact w/Intl Traveler<30days: No Traveled to known affect area: No History of Present Illness HPI 26-year-old male patient with history of cystic fibrosis, status post cholecystectomy 3 weeks ago in [place], presents to the ER today for 1 day history of epigastric abdominal pains which she currently measures and 8 out of 10, nausea and vomiting, and states he can't keep anything down, states his throat is burning from all the vomiting. He denies any fevers, diarrhea, or other symptoms. He states that his discomfort is going into his chest area now. Modifying Factors: None Associated Signs & Symptoms: Epigastric abdominal pain, nausea and vomiting Risk Factors: Recent cholecystectomy, cystic fibrosis PFSH Past Medical History Asthma: No Anxiety: No Depression: No Cancer: No Cardiovascular Problems: No COPD: No Cystic Fibrosis: Yes Endocrine: No Gastrointestinal Disorders: Yes GERD: Yes Genitourinary: No Immune Disorder: No Implanted Vascular Access Dvce: No Musculoskeletal: No Neurologic: No Psychiatric: No Reproductive: Yes (yes due to Cystic Fibrosis) Respiratory: Yes (Cystic fibrosis) Pancreatitis: Yes Seizures: No Sleep Apnea: No Ulcer: No Past Surgical History Abdominal Surgery: No Cardiac Surgery: No Ear Surgery: No Endocrine Surgery: No Eye Surgery: No Genitourinary Surgery: No Gynecologic Surgery: No Neurologic Surgery: Yes (CILIAC NERVE BLOCK) Oral Surgery: No Thoracic Surgery: No Other Surgery: No Social History Alcohol Use: No Tobacco Use: No Substance Use: No Allergies-Medications (Allergen,Severity, Reaction): Coded Allergies: No Known Allergies (Unverified , 12/27/16) Reported Meds & Prescriptions Reported Meds & Active Scripts Active Reported Lansoprazole 30 Mg Capdr 30 Mg PO DAILY Ondansetron (Ondansetron HCl) 8 Mg Tab 8 Mg PO TID PRN Metoclopramide (Metoclopramide HCl) 5 Mg Tab 5 Mg PO QID Albuterol Neb (Albuterol Sulfate) 2.5 Mg/0.5 Ml Neb 2.5 Mg NEB Q6HR NEB PRN Note: The Albuterol Sulfate Inhalation Solution is concentrated and must be diluted. Read complete instructions carefully before using. Oxycodone (Oxycodone HCl) 5 Mg Tab 5 Mg PO Q6H PRN Aquadeks (Multiple Vitamins W/ Minerals) 1 Chw Chw Fluticasone Nasal [place] 50 Mcg/Act Naspr 50 Mcg EACH NARE BID 50 mcg/spray Famotidine 20 Mg Tab 20 Mg PO BID Magnesium Oxide 400 Mg Tab 400 Mg PO DAILY Diazepam 2 Mg Tab 2 Mg PO BID PRN Gabapentin 100 Mg Cap 300 Mg PO BID Vitamin D (Cholecalciferol) 1,000 Unit Tab 1,000 Units PO DAILY Ventolin Hfa 18 GM Inh (Albuterol Sulfate) 90 Mcg/Act Aer 1 Puff INH Q4H PRN Zenpep (Pancrelipase) 10,000-34,000-55,000 Units Cap 1 Cap PO TIDPC Review of Systems Except as stated in HPI: all other systems reviewed are Neg Physical Exam Narrative GENERAL: Well-developed thin young white male patient currently in moderate distress. Awake and oriented 3. SKIN: Focused skin assessment warm/dry. HEAD: Atraumatic. Normocephalic. EYES: Pupils equal and round. No scleral icterus. No injection or drainage. ENT: No nasal bleeding or discharge. Dry mucous membranes. NECK: Trachea midline. No JVD. CARDIOVASCULAR: Regular rate and rhythm. No murmur appreciated. RESPIRATORY: No accessory muscle use. Clear to auscultation. Breath sounds equal bilaterally. GASTROINTESTINAL: Abdomen soft, epigastric tenderness and mild right upper quadrant tenderness without guarding or rebound, nondistended. Hepatic and splenic margins not palpable. MUSCULOSKELETAL: No obvious deformities. No clubbing. No cyanosis. No edema. NEUROLOGICAL: Awake and alert. No obvious cranial nerve deficits. Motor grossly within normal limits. Normal speech. PSYCHIATRIC: Appropriate mood and affect; insight and judgment normal. Data Data Last Documented VS Vital Signs Date Time Temp Pulse Resp B/P Pulse Ox O2 Delivery O2 Flow Rate FiO2 02/18/17 10:35 90 18 112/47 96 Room Air 02/18/17 08:38 98.0 Orders Complete Blood Count With Diff (02/18/17 08:50) Comprehensive Metabolic Panel (02/18/17 08:50) Lipase (02/18/17 08:50) Urinalysis - C+S If Indicated (02/18/17 08:50) Ct Abd/Pel W Iv Contrast(Rout) (02/18/17 08:50) Iv Access Insert/Monitor (02/18/17 08:50) Ecg Monitoring (02/18/17 08:50) Oximetry (02/18/17 08:50) Morphine Inj (Morphine Inj) (02/18/17 09:00) Ondansetron Inj (Zofran Inj) (02/18/17 09:00) Sodium Chlor 0.9% 1000 Ml Inj (Ns 1000 M (02/18/17 08:50) Sodium Chloride 0.9% Flush (Ns Flush) (02/18/17 09:00) Chest, Single Ap (02/18/17 08:50) Al-Mag Hy-Si 40-40-4 Mg/Ml Liq (Mag-Al P (02/18/17 09:00) Lidocaine 2% Viscous (Xylocaine 2% Visco (02/18/17 09:00) Iohexol 350 Inj (Omnipaque 350 Inj) (02/18/17 10:08) Blood Culture (02/18/17 10:47) Lactic Acid Sepsis Protocol (02/18/17 10:47) Piperacil-Tazo 4.5 Gm Premix (Zosyn 4.5 (02/18/17 10:47) Admit Order (Ed Use Only) (02/18/17 10:54) Labs Laboratory Tests Test 02/18/17 09:05 White Blood Count 15.3 TH/MM3 Red Blood Count 4.60 MIL/MM3 Hemoglobin 13.5 GM/DL Hematocrit 39.8 % Mean Corpuscular Volume 86.4 FL Mean Corpuscular Hemoglobin 29.4 PG Mean Corpuscular Hemoglobin 34.0 % Concent Red Cell Distribution Width 12.4 % Platelet Count 356 TH/MM3 Mean Platelet Volume 7.7 FL Neutrophils (%) (Auto) % Lymphocytes (%) (Auto) % Monocytes (%) (Auto) % Eosinophils (%) (Auto) % Basophils (%) (Auto) % Neutrophils # (Auto) TH/MM3 Lymphocytes # (Auto) TH/MM3 Monocytes # (Auto) TH/MM3 Eosinophils # (Auto) TH/MM3 Basophils # (Auto) TH/MM3 CBC Comment AUTO DIFF Differential Total Cells 100 Counted Neutrophils % (Manual) 82 % Band Neutrophils % 1 % Lymphocytes % 13 % Monocytes % 2 % Basophils % 1 % Neutrophils # (Manual) 12.9 TH/MM3 Myelocytes 1 % Differential Comment FINAL DIFF MANUAL Platelet Estimate NORMAL Platelet Morphology Comment NORMAL Red Cell Morphology Comment NORMAL Sodium Level 140 MEQ/L Potassium Level 3.7 MEQ/L Chloride Level 103 MEQ/L Carbon Dioxide Level 24.5 MEQ/L Anion Gap 13 MEQ/L Blood Urea Nitrogen 12 MG/DL Creatinine 1.00 MG/DL Estimat Glomerular Filtration 90 ML/MIN Rate Random Glucose 150 MG/DL Calcium Level 9.1 MG/DL Total Bilirubin 0.2 MG/DL Aspartate Amino Transf 22 U/L (AST/SGOT) Alanine Aminotransferase 28 U/L (ALT/SGPT) Alkaline Phosphatase 85 U/L Total Protein 8.2 GM/DL Albumin 4.4 GM/DL Lipase 34 U/L MDM Medical Decision Making Medical Screen Exam Complete: Yes Emergency Medical Condition: Yes Medical Record Reviewed: Yes Interpretation(s) Laboratory Tests Test 02/18/17 09:05 White Blood Count 15.3 TH/MM3 (4.0-11.0) Neutrophils % (Manual) 82 % (16-70) Neutrophils # (Manual) 12.9 TH/MM3 (1.8-7.7) Myelocytes 1 % (0-0) Random Glucose 150 MG/DL (74-106) Lipase 34 U/L (73-393) Last 24 hours Impressions Chest X-Ray 02/18/17 0850 Signed Impressions: Service Date/Time: Saturday, February 18, 2017 08:58 - CONCLUSION: 1. No acute cardiopulmonary disease. Chase Daniel MD Differential Diagnosis Nausea, vomiting, upper abdominal paingastritis versus gastroenteritis versus peptic ulcer disease versus pneumonia versus cystic fibrosis exacerbation versus other acute intra-abdominal processes versus pancreatitis Narrative Course Lab work shows significant leukocytosis. Chest x-ray and CAT scan did not show any signs of acute processes. However, considering his significant medical history, IV antibiotics were initiated as a precaution. Patient was given IV fluids, GI cocktail, pain medication and on reevaluation at 10:50 AM, is reporting some improvement in discomfort in his throat but states that he is still having some abdominal pains and had vomited in the ER as well. My plan would be to admit the patient as an observation for acute abdominal pain. Case is discussed with Dr. Dolan for admission. Diagnosis Primary Impression: Acute abdominal pain Admitting Information Admitting Physician Requests: Admit Derick Mccormick MD Feb 18, 2017 08:53
[2017-02-18] MEDS ORDERED: ONDANSETRON HCL 4 MG/2 ML VIAL IVP ONE (09:00)
[2017-02-18] MEDS ORDERED: LIDOCAINE VISCOUS 2% SOLN 15 ML UDC PO ONE (09:00)
[2017-02-18] MEDS ORDERED: MORPHINE SULFATE 4 MG/ML INJ IV PUSH ONE (09:00)
[2017-02-18] MEDS ORDERED: ALUMINUM/MAGNESIUM/SIMETH 30 ML CUP PO ONE (09:00)
[2017-02-18] MEDS ORDERED: SODIUM CHLORIDE 0.9% FLUSH 10 ML FLUSH IV FLUSH PRN (09:00)
--- NOTE | 2017-02-18 09:05 | RADHPO ---
EXAM DATE/TIME: 02/18/2017 08:58 [facility] COMPARISON: CHEST SINGLE AP, December 27, 2016, 15:48. INDICATIONS : Short of Breath and cough MEDICAL HISTORY : Cystic Fibrosis SURGICAL HISTORY : None. ENCOUNTER: Initial ACUITY: 1 day PAIN SCORE: 0/10 LOCATION: Bilateral chest FINDINGS: A single view of the chest demonstrates the lungs to be symmetrically aerated without evidence of mas s, infiltrate or effusion. The cardiomediastinal contours are unremarkable. Osseous structures are intact. CONCLUSION: 1. No acute cardiopulmonary disease. Chase Daniel MD on February 18, 2017 at 9:03 Board Certified Radiologist. This report was verified electronically.
[2017-02-18 09:11] LABS: HEMATOCRIT 39.8 % (39.0-51.0); MEAN CELL VOLUME 86.4 FL (80.0-100.0); MEAN CORPUSCULAR HEMOGLOBIN 29.4 PG (27.0-34.0); PLATELET COUNT 356 TH/MM3 (150-450); RED CELL DISTRIBUTION WIDTH 12.4 % (11.6-17.2); WHITE BLOOD COUNT 15.3 TH/MM3 (4.0-11.0)
[2017-02-18 09:19] LABS: HEMO FLAGS AUTO DIFF
[2017-02-18 09:46] LABS: BANDS 1 % (0-6); BASOPHILS 1 % (0-2); MYELOCYTES 1 % (0-0); NEUTROPHIL # MANUAL DIFF 12.9 TH/MM3 (1.8-7.7); POLYS (SEG NEUTROPHILS) 82 % (16-70); WBC DIFF SAMPLE 100
[2017-02-18 09:47] LABS: PLATELET ESTIMATE SMEAR NORMAL (NORMAL); PLATELET MORPHOLOGY NORMAL (NORMAL); SCAN/DIFF FINAL DIFF MANUAL
[2017-02-18 09:48] LABS: BICARBONATE 24.5 MEQ/L (21.0-32.0)
[2017-02-18 09:51] LABS: ALT (GPT) 28 U/L (12-78); GLOMERULAR FILTRATION RATE 90 ML/MIN (>89)
[2017-02-18 09:54] LABS: ALKALINE PHOSPHATASE 85 U/L (45-117)
[2017-02-18 09:59] LABS: ANION GAP 13 MEQ/L (5-15); CHLORIDE 103 MEQ/L (98-107); POTASSIUM 3.7 MEQ/L (3.5-5.1); SODIUM (NA) 140 MEQ/L (136-145)
[2017-02-18] MEDS ORDERED: IOHEXOL 350 MG/ML 10 ML VIAL (for RAD DIAG) IV ONE (10:08)
[2017-02-18 10:20] LABS: BLOOD UREA NITROGEN 12 MG/DL (7-18)
[2017-02-18 10:21] LABS: AST (GOT) 22 U/L (15-37)
[2017-02-18 10:27] LABS: TOTAL BILIRUBIN ADULT 0.2 MG/DL (0.2-1.0)
--- NOTE | 2017-02-18 10:41 | RADHPO ---
EXAM DATE/TIME: 02/18/2017 09:57 [facility] COMPARISON: No previous studies available for comparison. INDICATIONS : Upper quadrant abdomen pain with nausea and vomiting since yesterday. Recent cholecystectomy three we eks ago. IV CONTRAST: 90 cc Omnipaque 350 (iohexol) IV ORAL CONTRAST: No oral contrast ingested. RADIATION DOSE: 5.40 CTDIvol (mGy) MEDICAL HISTORY : Gastroesophageal reflux disease. Pancreatitis. Cystic fibrosis. SURGICAL HISTORY : Cholecystectomy. ENCOUNTER: Initial ACUITY: 2 days PAIN SCALE: 6/10 LOCATION: upper quadrant TECHNIQUE: Volumetric scanning of the abdomen and pelvis was performed. Using automated exposure control and ad justment of the mA and/or kV according to patient size, radiation dose was kept as low as reasonably achievable to obtain optimal diagnostic quality images. FINDINGS: Lung bases are clear. Surgical clips are seen in the gallbladder fossa. The liver is free of focal defects. The spleen, pancreas, adrenals and kidneys are unremarkable. There is symmetrical renal function. Region of the cecum and terminal ileum unremarkable. Pelvic contents appear normal. CONCLUSION: Negative for an acute process. I do not seen any ascites or evidence for a biliary leak. Delio Yu MD FACR on February 18, 2017 at 10:18 Board Certified Radiologist. This report was verified electronically.
[2017-02-18] MEDS ORDERED: PIPERACIL-TAZO 4.5 GM PREMIX 100 ML IV STA (10:47)
[2017-02-18] MEDS ORDERED: RESP: ALBUTEROL CONC 2.5 MG/0.5 ML NEB NEB PRN (11:15)
[2017-02-18] MEDS ORDERED: ALBUTEROL SULFATE 90 MCG/ACT HFA 18 GM INHALER INH PRN (11:15)
[2017-02-18] MEDS ORDERED: DIAZEPAM 2 MG TAB PO PRN (11:15)
--- NOTE | 2017-02-18 11:23 | HHI.HP ---
[facility] Service [facility] Primary Care Physician No Primary Care Physician Admission Diagnosis acute abdominal pain/leukocytosis Diagnoses: (1) Acute abdominal pain Diagnosis: Principal (2) Nausea & vomiting Diagnosis: Principal Chief Complaint: nausea/ vomiting Travel History International Travel<30 Days: No Contact w/Intl Traveler <30 Da: No Traveled to Known Affected Are: No History of Present Illness patient is a 26 y/o male with history of cystic fibrosis, s/p recent cholecystectomy who presented to ER with abdominal pain, nausea and vomiting. he says that he was doing fine till last night when he started to have abdominal pain. pain was epigastric with some radiation to the left chest. pain was moderate in intensity and was associated with nausea and several episodes of vomiting. he says that a few of them was mixture of coffee-ground and bright red blood emesis.no change in bowel movement and no report of fever. despite antiemetics that he received in ER he's still complaining of nausea along with epigastric pain.he's being followed by his plant taxonomist in [place]. Review of Systems Constitutional: DENIES: Fever, Weight loss, Chills, Night Sweats Eyes: DENIES: Blurred vision, Diplopia, Vision loss, Double Vision Ears, nose, mouth, throat: DENIES: Tinnitus, Vertigo, Throat pain, Epistaxis Respiratory: DENIES: Apneas, Cough, Snoring, Wheezing, Hemoptysis, Sputum production, Shortness of breath Cardiovascular: DENIES: Chest pain, Palpitations, Syncope, Dyspnea on Exertion , PND, Lower Extremity Edema, Orthopnea, Claudication Gastrointestinal: COMPLAINS OF: Abdominal pain, Nausea, Vomiting, DENIES: Black stools, Bloody stools, Constipation, Diarrhea, Difficulty Swallowing, Anorexia Genitourinary: DENIES: Urinary frequency, Urgency, Hematuria, Dysuria Musculoskeletal: DENIES: Joint pain, Muscle aches, Stiffness, Joint Swelling Integumentary: DENIES: Rash Neurologic: DENIES: Abnormal gait, Headache, Localized weakness, Paresthesias, Seizures, Speech Problems, Tremor, Poor Balance Psychiatric: DENIES: Anxiety, Confusion, Mood changes, Depression, Hallucinations, Agitation, Suicidal Ideation, Homicidal Ideation, Delusions Past Family Social History Past Medical History cystic fibrosis pancreatitis Past Surgical History recent cholecystectomy Reported Medications Lansoprazole 30 Mg Capdr 30 Mg PO DAILY Ondansetron (Ondansetron HCl) 8 Mg Tab 8 Mg PO TID PRN Metoclopramide (Metoclopramide HCl) 5 Mg Tab 5 Mg PO QID Albuterol Neb (Albuterol Sulfate) 2.5 Mg/0.5 Ml Neb 2.5 Mg NEB Q6HR NEB PRN Note: The Albuterol Sulfate Inhalation Solution is concentrated and must be diluted. Read complete instructions carefully before using. Oxycodone (Oxycodone HCl) 5 Mg Tab 5 Mg PO Q6H PRN Aquadeks (Multiple Vitamins W/ Minerals) 1 Chw Chw Fluticasone Nasal [place] 50 Mcg/Act Naspr 50 Mcg EACH NARE BID 50 mcg/spray Famotidine 20 Mg Tab 20 Mg PO BID Magnesium Oxide 400 Mg Tab 400 Mg PO DAILY Diazepam 2 Mg Tab 2 Mg PO BID PRN Gabapentin 100 Mg Cap 300 Mg PO BID Vitamin D (Cholecalciferol) 1,000 Unit Tab 1,000 Units PO DAILY Ventolin Hfa 18 GM Inh (Albuterol Sulfate) 90 Mcg/Act Aer 1 Puff INH Q4H PRN Zenpep (Pancrelipase) 10,000-34,000-55,000 Units Cap 1 Cap PO TIDPC Allergies: Coded Allergies: No Known Allergies (Unverified , 12/27/16) Physical Exam Vital Signs Vital Signs Date Time Temp Pulse Resp B/P Pulse Ox O2 Delivery O2 Flow Rate FiO2 02/18/17 10:35 90 18 112/47 96 Room Air 02/18/17 09:07 98 Room Air 02/18/17 08:38 98.0 88 16 139/93 99 Physical Exam GENERAL: This is a well-nourished, well-developed patient, in no apparent distress. SKIN: No rashes, ecchymoses or lesions. Cool and dry. HEAD: Atraumatic. Normocephalic. No temporal or scalp tenderness. EYES: Pupils equal round and reactive. Extraocular motions intact. No scleral icterus. No injection or drainage. ENT: Nose without bleeding, purulent drainage or septal hematoma. Throat without erythema, tonsillar hypertrophy or exudate. Uvula midline. Airway patent. NECK: Trachea midline. No JVD or lymphadenopathy. Supple, nontender, no meningeal signs. CARDIOVASCULAR: Regular rate and rhythm without murmurs, gallops, or rubs. RESPIRATORY: Clear to auscultation. Breath sounds equal bilaterally. No wheezes , rales, or rhonchi. GASTROINTESTINAL: Abdomen soft, some epigastric tenderness, nondistended. No hepato-splenomegaly, or palpable masses. No guarding. MUSCULOSKELETAL: Extremities without clubbing, cyanosis, or edema. No joint tenderness, effusion, or edema noted. No calf tenderness. Negative Homans sign bilaterally. NEUROLOGICAL: Awake and alert. Cranial nerves II through XII intact. Motor and sensory grossly within normal limits. Five out of 5 muscle strength in all muscle groups. Normal speech. Laboratory Laboratory Tests Test 02/18/17 09:05 White Blood Count 15.3 Red Blood Count 4.60 Hemoglobin 13.5 Hematocrit 39.8 Mean Corpuscular Volume 86.4 Mean Corpuscular Hemoglobin 29.4 Mean Corpuscular Hemoglobin 34.0 Concent Red Cell Distribution Width 12.4 Platelet Count 356 Mean Platelet Volume 7.7 Neutrophils (%) (Auto) Lymphocytes (%) (Auto) Monocytes (%) (Auto) Eosinophils (%) (Auto) Basophils (%) (Auto) Neutrophils # (Auto) Lymphocytes # (Auto) Monocytes # (Auto) Eosinophils # (Auto) Basophils # (Auto) CBC Comment AUTO DIFF Differential Total Cells 100 Counted Neutrophils % (Manual) 82 Band Neutrophils % 1 Lymphocytes % 13 Monocytes % 2 Basophils % 1 Neutrophils # (Manual) 12.9 Myelocytes 1 Differential Comment FINAL DIFF MANUAL Platelet Estimate NORMAL Platelet Morphology Comment NORMAL Red Cell Morphology Comment NORMAL Sodium Level 140 Potassium Level 3.7 Chloride Level 103 Carbon Dioxide Level 24.5 Anion Gap 13 Blood Urea Nitrogen 12 Creatinine 1.00 Estimat Glomerular Filtration 90 Rate Random Glucose 150 Calcium Level 9.1 Total Bilirubin 0.2 Aspartate Amino Transf 22 (AST/SGOT) Alanine Aminotransferase 28 (ALT/SGPT) Alkaline Phosphatase 85 Total Protein 8.2 Albumin 4.4 Lipase 34 Result Diagram: 02/18/1790402/18/17904 Imaging Last Impressions Chest X-Ray 02/18/17 0850 Signed Impressions: Service Date/Time: Saturday, February 18, 2017 08:58 - CONCLUSION: 1. No acute cardiopulmonary disease. Chase Daniel MD Assessment and Plan Assessment and Plan A/P - abdominal pain/ hematemesis with history of cystic fibrosis/ pancreatitis and recent cholecystectomy keep NPO and continue supportive care with IV fluid, antiemetics and pain control- will consult GI -leukocytosis- likely reactive- will monitor temps- CBC in am Discussed Condition With the ER physician and the patient. Problem Qualifiers (1) Nausea & vomiting: Qualified Code: K92.0 - Hematemesis with nausea Ede Jain MD Feb 18, 2017 11:23
[2017-02-18] MEDS ORDERED: PANTOPRAZOLE SODIUM 40 MG VIAL IV PUSH SCH (12:00)
[2017-02-18] MEDS: SODIUM CHLOR 0.9% 1000 ML INJ 1,000 ML IV SCH ×2 (12:14→22:43)
[2017-02-18 12:35] LABS: BLOOD, URINE NEG (NEG); GLUCOSE,URINE NEG (NEG); KETONE, URINE NEG (NEG); NITRITE,URINE NEG (NEG)
[2017-02-18 12:36] LABS: METHOD OF COLLECTION CLEAN CATCH; URINE COLOR YELLOW (YELLW/STRAW)
[2017-02-18 12:47] LABS: COMMENT (UR) CULT NOT INDICATED; COMMENT2 (UR) MUCOUS PRESENT; CULTURE IF INDICATED CULT NOT INDICATED; SQUAMOUS EPITHELIAL CELL URINE 0-5 /hpf (0-5)
[2017-02-18 13:25] LABS: LACTIC ACID GHOST NOT REPORTABLE
[2017-02-18] MEDS: MORPHINE SULFATE 4 MG/ML INJ IV PUSH PRN ×3 (14:31→22:51)
[2017-02-18] MEDS: ONDANSETRON HCL 4 MG/2 ML VIAL IV PUSH PRN ×2 (14:31→22:52)
--- NOTE | 2017-02-18 17:58 | MB ---
cc: RAULITO GUO M.D., MOHAMMADREZA MD DATE OF CONSULTATION February 18, [address] Jain REASON FOR CONSULTATION Abdominal pain, nausea. HISTORY OF PRESENT ILLNESS Mr. Lopez is a 26-year-old gentleman with longstanding history of cystic fibrosis. He is originally from [place]. He said he was enrolled with the [facility] initially but he was not happy with their care, so he came down to see a cystic fibrosis specialist in [place]. Because of that reason he has moved into the [facility]. About 3 weeks ago he had an outpatient laparoscopic cholecystectomy done at [facility] in [place]. He says the surgery was uneventful. He was doing well up until yesterday when he started having severe epigastric pain followed by nausea and he believed that he threw up some blood. He states he has had multiple endoscopies in the past, the most recent one was about 4 weeks ago prior to his laparoscopic cholecystectomy. These endoscopies were reported as normal. Currently, he feels really well. His pain is about 5/10. He says pain is worse because he has not eaten in over 24 hours. REVIEW OF SYSTEMS No nausea, vomiting at this time. No hematemesis or hematochezia. Minimal abdominal pain. PAST MEDICAL HISTORY Cystic fibrosis and pancreatitis. PAST SURGICAL HISTORY Recent cholecystectomy. Multiple endoscopies in the past. MEDICATIONS On admission: 1. Lansoprazole. 2. Reglan. 3. Albuterol nebulizers. 4. Zofran. 5. Oxycodone. 6. Fluticasone. 7. Famotidine. 8. Gabapentin. 9. Diazepam. 10. Pancrelipase replacement enzyme. ALLERGIES None documented. PHYSICAL EXAMINATION GENERAL: The physical examination reveals a well-nourished man in no apparent distress. VITAL SIGNS: Stable. HEAD AND NECK EXAMINATION: Anicteric sclera. CHEST: Bilateral air entry with rales. ABDOMEN: Abdomen is soft, some tenderness in the epigastric area with some voluntary guarding. Bowel sounds are present. SOLAR SITE ASSESSMENT SPECIALIST: Exam is nonfocal. LABORATORY DATA Labs reveal white cell count of 15.3, hemoglobin 13.5, creatinine is 1. Liver function tests are normal. Lipase is 34. IMAGING STUDIES A CT of the abdomen and pelvis is essentially unremarkable. IMPRESSION Abdominal pain possibly related to chronic pancreatitis. RECOMMENDATIONS Mr. Lopez states that he has this pain in the past and has had this pain repetitively over the period of years. He says pain generally responds to resting, IV hydration and pain medicines. This cycle has been started in the hospital and he already feels better. No obvious need for endoscopy at this time. Obviously, if he has any further bleeding will plan on doing an endoscopy for him. Start with liquid diet, advance diet as tolerated. There is no biochemical or radiological evidence of pancreatitis at this time. Will follow with you. Thank you for this referral. MD JUANPABLO Magallon/DEANA /4:46 PM /5:47 PM
[2017-02-19] VITALS: BP 127/80; PULSE 79; RESP 18; TEMP 97.8; O2SAT 95
[2017-02-19 06:28] LABS: AUTOMATED NEUTROPHIL # 5.3 TH/MM3 (1.8-7.7); BASOPHIL # 0.2 TH/MM3 (0-0.2); BASOPHIL % 1.6 % (0.0-2.0); EOSINOPHIL # 0.1 TH/MM3 (0-0.4); EOSINOPHIL % 1.5 % (0.0-4.0); HEMATOCRIT 36.3 % (39.0-51.0); HEMO FLAGS DIFF FINAL; LYMPH % 37.6 % (9.0-44.0); LYMPHOCYTE # 3.7 TH/MM3 (1.0-4.8); MEAN CELL VOLUME 88.2 FL (80.0-100.0); MONO % 6.1 % (0.0-8.0); NEUT % 53.2 % (16.0-70.0); PLATELET COUNT 260 TH/MM3 (150-450); RED BLOOD COUNT 4.12 MIL/MM3 (4.50-5.90); RED CELL DISTRIBUTION WIDTH 13.2 % (11.6-17.2); WHITE BLOOD COUNT 9.9 TH/MM3 (4.0-11.0)
[2017-02-19 08:00] VITALS: BP 102/54; PULSE 54; RESP 16; TEMP 98.2; O2SAT 96
[2017-02-19] MEDS: SODIUM CHLOR 0.9% 1000 ML INJ 1,000 ML IV SCH (09:12)
[2017-02-19] MEDS: MORPHINE SULFATE 4 MG/ML INJ IV PUSH PRN (09:19)
--- NOTE | 2017-02-19 11:21 | HHI.PR ---
Subjective Remarks Patient reports that abdominal pain has resolved. Denies any nausea or vomiting today. He reports tolerating breakfast. He says that if he tolerates lunch, he would feel comfortable going home. Objective Vital Signs Date Time Temp Pulse Resp B/P Pulse Ox O2 Delivery O2 Flow Rate FiO2 02/19/17 08:00 98.2 54 16 102/54 96 02/19/17 00:00 97.8 79 18 127/80 95 02/18/17 20:00 98.2 61 16 127/80 96 02/18/17 16:30 99.4 88 15 108/57 97 02/18/17 13:33 98.8 83 15 103/74 96 02/18/17 13:09 97 18 112/72 98 Room Air I/O 02/18/17 02/18/17 02/18/17 02/19/17 02/19/17 02/19/17 07:00 15:00 23:00 07:00 15:00 23:00 Intake Total 430 ml 10 ml Output Total 300 ml Balance -300 ml 430 ml 10 ml Intake IV Total 430 ml 10 ml Output Urine Total 300 ml Result Diagram: 02/19/17 0602/18/17 09 Imaging Last Impressions Chest X-Ray 02/18/17 0850 Signed Impressions: Service Date/Time: Saturday, February 18, 2017 08:58 - CONCLUSION: 1. No acute cardiopulmonary disease. Chase Daniel MD Abdomen/Pelvis CT 02/18/17 0850 Signed Impressions: Service Date/Time: Saturday, February 18, 2017 09:57 - CONCLUSION: Negative for an acute process. I do not seen any ascites or evidence for a biliary leak. Delio Yu MD FACR Objective Remarks GENERAL: Patient sitting up in bed. Appears comfortable. Alert and oriented 3. SKIN: Warm and dry. HEAD: Normocephalic. EYES: No scleral icterus. No injection or drainage. NECK: Supple, trachea midline. No JVD. CARDIOVASCULAR: Regular rate and rhythm without murmurs, gallops, or rubs. RESPIRATORY: Breath sounds equal bilaterally. No accessory muscle use. GASTROINTESTINAL: Abdomen soft, non-tender, nondistended. No rebound or guarding. Bowel sounds. No bruits. MUSCULOSKELETAL: No cyanosis, or edema. BACK: Nontender without obvious deformity. No CVA tenderness. A/P Assessment and Plan A/P //abdominal pain/ hematemesis with history of cystic fibrosis/ pancreatitis and recent cholecystectomy -Abdominal pain resolved Appreciate GI assistance. -Likely abdominal pain, nausea and vomiting secondary to fatty meal history of pancreatitis -Tolerates lunch, can discharge home. //leukocytosis- likely active secondary to vomiting. Resolved. //DVT prophylaxis. Ambulatory. Discharge Planning if Tolerates lunch, can go home. Kris Owens MD Feb 19, 2017 11:21
--- NOTE | 2017-02-19 21:13 | EKG ---
Date Performed: 02/18/2017 Time Performed: 08:30:34 PTAGE: 26 years EKG: Sinus rhythm Normal ECG NO PREVIOUS TRACING DOCTOR: Moriah Safnord Interpretating Date/Time 02/19/2017 21:10:49
== END 2017-02-19 13:47 | disposition home or self-care (01) ==
LOC: PHED 08:31 → PHEDA 10:55 → PH3A 13:10
PROVIDERS: ADMIT Internal Medicine; ATTEND Internal Medicine
DX: R10.13 Epigastric pain (principal); K92.0 Hematemesis; K21.9 Gastro-esophageal reflux disease without esophagitis; D72.829 Elevated white blood cell count, unspecified; E84.9 Cystic fibrosis, unspecified; Z90.49 Acquired absence of other specified parts of digestive tract
CPT/HCPCS: 71010; 74177; 80053; 81001; 83605; 83690; 85007; 85025; 85027; 86403; 87040; 87077; 87186; 87205; 93005; 96361; 96374; 96375; 99285; C9113; G0378; J2270; J2405; J2543; J7030; Q9967

== ENCOUNTER 2017-03-09 11:53 | Emergency (ER) | payer MEDICAID ==
[~2017-03-09] VITALS: Ht 175.3 cm; Wt 65.3 kg
[~2017-03-09 11:53] MED LIST changes: -AZIT500T2 PO; -LEVO750T33 PO
[2017-03-09 12:00] VITALS: BP 124/95; PULSE 97; RESP 18; O2SAT 98
[2017-03-09 12:15] VITALS: TEMP 97.7
[2017-03-09] MEDS ORDERED: SODIUM CHLOR 0.9% 1000 ML INJ 1,000 ML IV SCH ×2 (12:19→12:22)
--- NOTE | 2017-03-09 12:25 | PD ---
HPI Chief Complaint: GI Complaint Time Seen by Provider: 12:18 Travel History International Travel<30 days: No Contact w/Intl Traveler<30days: No Traveled to known affect area: No History of Present Illness HPI Patient is a 26-year-old male with history of cystic fibrosis who presents the emergency department with complaint of one day of intractable nausea, vomiting and epigastric abdominal discomfort. Patient had a laparoscopic cholecystectomy approximately 1-2 months ago. He was hospitalized here in early February for intractable nausea and vomiting felt to be due to early pancreatitis as he has a history of same and his symptoms came on after a fatty meal. He has been well in the interim. Patient had a hamburger last evening, woke up this morning with intractable nausea, vomiting and epigastric abdominal pain. States that the pain is sharp, burning. Radiates up into the chest slightly and makes it worse when he takes a deep breath in. No cough, chest congestion, shortness of breath. Patient has had mild bloody streaked hematemesis, no large volume hematemesis or clot. No associated diarrhea. No fevers, chills. PFSH Past Medical History Asthma: No Anxiety: No Depression: No Cancer: No Cardiovascular Problems: No COPD: No Cystic Fibrosis: Yes Diabetes: No Diminished Hearing: No Endocrine: No Gastrointestinal Disorders: Yes GERD: Yes Genitourinary: No Immune Disorder: No Implanted Vascular Access Dvce: No Musculoskeletal: No Neurologic: No Psychiatric: No Reproductive: Yes (yes due to Cystic Fibrosis) Respiratory: Yes (Cystic fibrosis) Pancreatitis: Yes Seizures: No Sleep Apnea: No Ulcer: No Tetanus Vaccination: Unknown Past Surgical History Abdominal Surgery: No Cardiac Surgery: No Ear Surgery: No Endocrine Surgery: No Eye Surgery: No Genitourinary Surgery: No Gynecologic Surgery: No Neurologic Surgery: Yes (CILIAC NERVE BLOCK) Oral Surgery: No Thoracic Surgery: No Other Surgery: No Social History Alcohol Use: No Tobacco Use: No Substance Use: No Allergies-Medications (Allergen,Severity, Reaction): Coded Allergies: No Known Allergies (Unverified , 03/09/17) Reported Meds & Prescriptions Reported Meds & Active Scripts Active Reported Lansoprazole 30 Mg Capdr 30 Mg PO DAILY Ondansetron (Ondansetron HCl) 8 Mg Tab 8 Mg PO TID PRN Metoclopramide (Metoclopramide HCl) 5 Mg Tab 5 Mg PO QID Albuterol Neb (Albuterol Sulfate) 2.5 Mg/0.5 Ml Neb 2.5 Mg NEB Q6HR NEB PRN Note: The Albuterol Sulfate Inhalation Solution is concentrated and must be diluted. Read complete instructions carefully before using. Oxycodone (Oxycodone HCl) 5 Mg Tab 5 Mg PO Q6H PRN Aquadeks (Multiple Vitamins W/ Minerals) 1 Chw Chw Fluticasone Nasal [place] 50 Mcg/Act Naspr 50 Mcg EACH NARE BID 50 mcg/spray Famotidine 20 Mg Tab 20 Mg PO BID Magnesium Oxide 400 Mg Tab 400 Mg PO DAILY Diazepam 2 Mg Tab 2 Mg PO BID PRN Gabapentin 100 Mg Cap 300 Mg PO BID Vitamin D (Cholecalciferol) 1,000 Unit Tab 1,000 Units PO DAILY Ventolin Hfa 18 GM Inh (Albuterol Sulfate) 90 Mcg/Act Aer 1 Puff INH Q4H PRN Zenpep (Pancrelipase) 10,000-34,000-55,000 Units Cap 1 Cap PO TIDPC Review of Systems Except as stated in HPI: all other systems reviewed are Neg Physical Exam Narrative GENERAL: Uncomfortable male dry heaving SKIN: Focused skin assessment warm and diaphoretic HEAD: Normocephalic. EYES: No scleral icterus. No injection or drainage. ENT: Mucous membranes pink and moist. NECK: Supple CARDIOVASCULAR: Regular rate and rhythm. No murmur appreciated. RESPIRATORY: No accessory muscle use. Clear to auscultation. Breath sounds equal bilaterally. GASTROINTESTINAL: Abdomen soft, epigastric abdominal tenderness to palpation without rebound or guarding. No CVA tenderness MUSCULOSKELETAL: Normal gait NEUROLOGICAL: Awake and alert. Normal speech. PSYCHIATRIC: Appropriate mood and affect; insight and judgment normal. Data Data Last Documented VS Vital Signs Date Time Temp Pulse Resp B/P Pulse Ox O2 Delivery O2 Flow Rate FiO2 03/09/17 12:36 16 100 Room Air 03/09/17 12:15 97.7 03/09/17 12:00 97 124/95 Orders Complete Blood Count With Diff (03/09/17 12:19) Comprehensive Metabolic Panel (03/09/17 12:19) Lipase (03/09/17 12:19) Iv Access Insert/Monitor (03/09/17 12:19) Ecg Monitoring (03/09/17 12:19) Oximetry (03/09/17 12:19) Morphine Inj (Morphine Inj) (03/09/17 12:30) Ondansetron Inj (Zofran Inj) (03/09/17 12:30) Sodium Chlor 0.9% 1000 Ml Inj (Ns 1000 M (03/09/17 12:19) Sodium Chloride 0.9% Flush (Ns Flush) (03/09/17 12:30) Pantoprazole Inj (Protonix Inj) (03/09/17 12:30) Sodium Chlor 0.9% 1000 Ml Inj (Ns 1000 M (03/09/17 12:22) Hydromorphone Pf Inj (Dilaudid Pf Inj) (03/09/17 13:00) Diphenhydramine Inj (Benadryl Inj) (03/09/17 13:15) Metoclopramide Inj (Reglan Inj) (03/09/17 13:15) Labs Laboratory Tests Test 03/09/17 12:30 White Blood Count 13.9 TH/MM3 Red Blood Count 4.96 MIL/MM3 Hemoglobin 14.4 GM/DL Hematocrit 43.5 % Mean Corpuscular Volume 87.6 FL Mean Corpuscular Hemoglobin 28.9 PG Mean Corpuscular Hemoglobin 33.0 % Concent Red Cell Distribution Width 12.0 % Platelet Count 296 TH/MM3 Mean Platelet Volume 7.7 FL Neutrophils (%) (Auto) 86.5 % Lymphocytes (%) (Auto) 11.3 % Monocytes (%) (Auto) 0.8 % Eosinophils (%) (Auto) 0.6 % Basophils (%) (Auto) 0.8 % Neutrophils # (Auto) 12.0 TH/MM3 Lymphocytes # (Auto) 1.6 TH/MM3 Monocytes # (Auto) 0.1 TH/MM3 Eosinophils # (Auto) 0.1 TH/MM3 Basophils # (Auto) 0.1 TH/MM3 CBC Comment DIFF FINAL Differential Comment Sodium Level 142 MEQ/L Potassium Level 3.9 MEQ/L Chloride Level 105 MEQ/L Carbon Dioxide Level 29.3 MEQ/L Anion Gap 8 MEQ/L Blood Urea Nitrogen 14 MG/DL Creatinine 0.88 MG/DL Estimat Glomerular Filtration 105 ML/MIN Rate Random Glucose 145 MG/DL Calcium Level 9.5 MG/DL Total Bilirubin 0.2 MG/DL Aspartate Amino Transf 16 U/L (AST/SGOT) Alanine Aminotransferase 22 U/L (ALT/SGPT) Alkaline Phosphatase 77 U/L Total Protein 8.2 GM/DL Albumin 4.4 GM/DL Lipase 36 U/L MDM Medical Decision Making Medical Screen Exam Complete: Yes Emergency Medical Condition: Yes Medical Record Reviewed: Yes Differential Diagnosis 26-year-old male with history of cystic fibrosis, previous pancreatitis, status post laparoscopic cholecystectomy here with 1 day of epigastric abdominal pain and intractable nausea and vomiting after eating a fatty meal last night. Differential includes gastritis, pancreatitis, hepatobiliary pathology, peptic ulcer disease, gastroparesis. Narrative Course Patient placed on monitor, IV established and blood obtained. Given 2 L normal saline bolus, 4 mg morphine, 4 mg Zofran, IV PPI. Patient had little relief and was given 0.5 mg Dilaudid IV. CBC, CMP, lipase obtained and unremarkable. Patient was able to tolerate oral challenge and will be discharged home.. Diagnosis Primary Impression: Gastritis Qualified Code: K29.00 - Acute gastritis without hemorrhage, unspecified gastritis type Additional Impression: Nausea & vomiting Qualified Code: R11.2 - Non-intractable vomiting with nausea, unspecified vomiting type Referrals: Thea Reddy MD call for appointment Primary Care Physician call for appointment Additional Instructions: Continue home antacids and nausea medications as needed. Follow-up with GI physician as discussed. Med/Other Pt SpecificInfo: No Change to Meds Disposition: 01 DISCHARGE HOME Condition: Stable Linda Jane MD Mar 09, 2017 12:25
[2017-03-09] MEDS ORDERED: ONDANSETRON HCL 4 MG/2 ML VIAL IVP ONE (12:30)
[2017-03-09] MEDS ORDERED: MORPHINE SULFATE 4 MG/ML INJ IV PUSH ONE (12:30)
[2017-03-09] MEDS ORDERED: PANTOPRAZOLE SODIUM 40 MG VIAL IVP ONE (12:30)
[2017-03-09] MEDS ORDERED: SODIUM CHLORIDE 0.9% FLUSH 10 ML FLUSH IV FLUSH PRN (12:30)
[2017-03-09 12:36] VITALS: RESP 16; O2SAT 100
[2017-03-09 12:40] LABS: BASOPHIL # 0.1 TH/MM3 (0-0.2); BASOPHIL % 0.8 % (0.0-2.0); EOSINOPHIL # 0.1 TH/MM3 (0-0.4); EOSINOPHIL % 0.6 % (0.0-4.0); HEMATOCRIT 43.5 % (39.0-51.0); LYMPH % 11.3 % (9.0-44.0); LYMPHOCYTE # 1.6 TH/MM3 (1.0-4.8); MEAN CELL VOLUME 87.6 FL (80.0-100.0); MEAN CORPUSCULAR HEMOGLOBIN 28.9 PG (27.0-34.0); MONO % 0.8 % (0.0-8.0); NEUT % 86.5 % (16.0-70.0); PLATELET COUNT 296 TH/MM3 (150-450); RED BLOOD COUNT 4.96 MIL/MM3 (4.50-5.90); WHITE BLOOD COUNT 13.9 TH/MM3 (4.0-11.0)
[2017-03-09 12:41] LABS: HEMO FLAGS DIFF FINAL
[2017-03-09 12:48] LABS: CHLORIDE 105 MEQ/L (98-107); POTASSIUM 3.9 MEQ/L (3.5-5.1); SODIUM (NA) 142 MEQ/L (136-145)
[2017-03-09 12:52] LABS: ANION GAP 8 MEQ/L (5-15); BICARBONATE 29.3 MEQ/L (21.0-32.0); BLOOD UREA NITROGEN 14 MG/DL (7-18)
[2017-03-09 12:54] LABS: ALT (GPT) 22 U/L (12-78); AST (GOT) 16 U/L (15-37)
[2017-03-09 12:55] LABS: GLOMERULAR FILTRATION RATE 105 ML/MIN (>89)
[2017-03-09 12:56] LABS: TOTAL BILIRUBIN ADULT 0.2 MG/DL (0.2-1.0)
[2017-03-09 12:57] LABS: ALKALINE PHOSPHATASE 77 U/L (45-117)
[2017-03-09] MEDS ORDERED: HYDROmorphone HCL PF 1 MG/ML VIAL IV PUSH ONE (13:00)
[2017-03-09] MEDS ORDERED: METOCLOPRAMIDE HCL 10 MG/2 ML VIAL IVP ONE (13:15)
[2017-03-09] MEDS ORDERED: diphenhydrAMINE HCL 50 MG/ML VIAL IVP ONE (13:15)
[2017-03-09 14:56] VITALS: BP 110/63
== END 2017-03-09 15:12 | disposition home or self-care (01) ==
LOC: PHED 11:53
DX: K29.00 Acute gastritis without bleeding (principal); E84.9 Cystic fibrosis, unspecified; R11.2 Nausea with vomiting, unspecified; Z87.19 Personal history of other diseases of the digestive system; Z98.890 Other specified postprocedural states
CPT/HCPCS: 80053; 83690; 85025; 96361; 96374; 96375; 99284; C9113; J1170; J1200; J2270; J2405; J2765; J7030